=== PATIENT | male | born 1975 | race Caucasian/White ===

== ENCOUNTER 2017-04-24 11:54 | Emergency (ER) | payer MEDICARE, OTHER ==
[~2017-04-24] VITALS: Ht 167.6 cm; Wt 62.0 kg
[~2017-04-24 11:54] MED LIST: CENTTAB9 PO; CLEAPOW2 PO; DIAZ5 PO; DIVA500 PO; DIVA500T8 PO; FOLI1TAB PO; LAMO25 PO; LEVO75TA41 PO; PRIM250 PO; QUET100 PO; QUET300 PO; WAL-10TA2 PO
[2017-04-24 12:01] VITALS: BP 103/68; PULSE 96; RESP 16; TEMP 97.1; O2SAT 96
[2017-04-24] MEDS ORDERED: DIAZ5 PO (12:16)
[2017-04-24] MEDS ORDERED: DEPA500T PO ×2 (12:16)
[2017-04-24] MEDS ORDERED: PRIM250 PO (12:16)
[2017-04-24] MEDS ORDERED: LEVO100T5 PO (12:16)
[2017-04-24] MEDS ORDERED: SERO300T PO (12:16)
[2017-04-24] MEDS ORDERED: CLAR10CA3 PO (12:16)
[2017-04-24] MEDS ORDERED: [UNRECOGNIZED DRUG - CODE] TOPICAL (12:16)
[2017-04-24] MEDS ORDERED: CENTCHW4 CHEW (12:16)
[2017-04-24] MEDS ORDERED: SERO100T PO (12:16)
[2017-04-24] MEDS ORDERED: LAMO100 PO (12:16)
[2017-04-24] MEDS ORDERED: MIRA3350 PO (12:16)
[2017-04-24] MEDS ORDERED: FOLI-31 PO (12:16)
--- NOTE | 2017-04-24 12:34 | PD ---
HPI Chief Complaint: Fall Time Seen by Provider: 12:27 Travel History International Travel<30 days: No Contact w/Intl Traveler<30days: No Traveled to known affect area: No History of Present Illness HPI Pleasant young man with past medical history of ADD cerebral palsy seizure disorder mental retardation and mood control with aggressive behavior presents for evaluation of head trauma. Cert Pharmacy Tech reports seizure activity last night with trauma to the back of his head and an episode this morning. Last night's episode was observed and this morning's episode is questionable. Patient normally wears a helmet but it was not in place. Patient is uncommunicative which is his baseline. PFSH Past Medical History ADHD: Yes Cerebral Palsy: Yes Diabetes: No Diminished Hearing: No Gastrointestinal Disorders: Yes (CONSTIPATION) Neurologic: Yes (mental retardation) Psychiatric: Yes (MOOD CONTROL, AGRESSIVE BEHAVIOR) Immunizations Current: Yes (PER CAREGIVER) Seizures: Yes Tetanus Vaccination: < 5 Years Social History Alcohol Use: No Tobacco Use: No Substance Use: No Allergies-Medications (Allergen,Severity, Reaction): Coded Allergies: No Known Allergies (Verified , 04/24/17) Reported Meds & Prescriptions Reported Meds & Active Scripts Active Reported Seroquel (Quetiapine Fumarate) 300 Mg Tab 300 Mg PO HS Claritin (Loratadine) 10 Mg Cap 10 Mg PO DAILY Depakote DR (Divalproex Sodium) 500 Mg Tabdr 1,000 Mg PO HS Miralax Powder (Polyethylene Glycol 3350 Powder) 17 Gm Powd 17 Gm PO DAILY Mix and dissolve one measuring cap-ful (17 grams) in water or juice. Lamictal (Lamotrigine) 100 Mg Tab 100 Mg PO BID Mysoline (Primidone) 250 Mg Tab 250 Mg PO BID Depakote DR (Divalproex Sodium) 500 Mg Tabdr 500 Mg PO BID Valium (Diazepam) 5 Mg Tab 5 Mg PO Q6H PRN Foltabs (Folic Acid-B12-B6) 0.8-115-10 Mg Tab 1 Tab PO DAILY Cleocin-T Topical (Clindamycin Phosphate) 1% Lotn 1 Applic TOPICAL DAILY Levothyroxine (Levothyroxine Sodium) 100 Mcg Tab 100 Mcg PO DAILY Centrum (Multiple Vitamins W/ Minerals) 1 Chew 1 Tab CHEW DAILY Seroquel (Quetiapine Fumarate) 100 Mg Tab 100 Mg PO DAILY Review of Systems ROS Limitations: Poor Historian General / Constitutional: No: Fever Eyes: No: Visual changes HENT: No: Headaches Cardiovascular: No: Chest Pain or Discomfort Respiratory: No: Shortness of Breath Gastrointestinal: No: Abdominal Pain Genitourinary: No: Dysuria Musculoskeletal: No: Pain Skin: No Rash Neurologic: No: Weakness Psychiatric: No: Depression Endocrine: No: Polydipsia Hematologic/Lymphatic: No: Easy Bruising Physical Exam Narrative GENERAL: Well-nourished, well-developed patient. SKIN: Focused skin assessment warm/dry. HEAD: Normocephalic. Y-shaped laceration to the back of the head measuring approximately 2.5 cm in total diameter, well aligned with associated hematoma EYES: No scleral icterus. No injection or drainage. NECK: Supple, trachea midline. No JVD or lymphadenopathy. CARDIOVASCULAR: Regular rate and rhythm without murmurs, gallops, or rubs. RESPIRATORY: Breath sounds equal bilaterally. No accessory muscle use. GASTROINTESTINAL: Abdomen soft, non-tender, nondistended. MUSCULOSKELETAL: No cyanosis, or edema. BACK: Nontender without obvious deformity. No CVA tenderness. Data Data Last Documented VS Vital Signs Date Time Temp Pulse Resp B/P Pulse Ox O2 Delivery O2 Flow Rate FiO2 04/24/17 13:04 91 18 100/79 98 Room Air 04/24/17 12:[address] Brain W/O Iv Contrast(Rout) (04/24/17 ) Ct Cerv Spine W/O Contrast (04/24/17 ) Lorazepam Inj (Ativan Inj) (04/24/17 12:50) Lorazepam Inj (Ativan Inj) (04/24/17 13:00) MDM Medical Decision Making Medical Screen Exam Complete: Yes Emergency Medical Condition: Yes Differential Diagnosis Subdural hematoma, scalp laceration, concussion, scalp contusion Narrative Course Assessment and plan discussed with systems designer and patient at bedside. No closure of the scalp laceration since it is well aligned and has been greater than 12 hours. Last [address] 04/24/17 0000 Signed Impressions: Service Date/Time: Monday, April 24, 2017 12:35 - CONCLUSION: Unremarkable study except for slight scalp swelling. Aldo Sanchez MD Cervical Spine CT 04/24/17 0000 Signed Impressions: Service Date/Time: Monday, April 24, 2017 12:35 - CONCLUSION: Unremarkable study. Aldo Sanchez MD Diagnosis Primary Impression: Scalp contusion Additional Impression: Seizure-like activity Patient Instructions: General Instructions Additional Instructions: Encouraged to wear helmet more regularly. Encouraged to follow-up with neurology to discuss seizure medications. Return to the ER with any onset of new symptoms. Med/Other Pt SpecificInfo: No Meds Exist/No RX given Disposition: 01 DISCHARGE HOME Condition: Good Jose Mendez MD Apr 24, 2017 12:34
[2017-04-24] MEDS ORDERED: LORazepam 2 MG/ML VIAL ONE (12:50)
[2017-04-24] MEDS ORDERED: LORazepam 2 MG/ML VIAL IV ONE (13:00)
[2017-04-24 13:04] VITALS: BP 100/79; PULSE 91; RESP 18; O2SAT 98
--- NOTE | 2017-04-24 13:07 | RADRPT ---
EXAM DATE/TIME: 04/24/2017 12:35 [facility] COMPARISON: CT BRAIN W/O CONTRAST, April 25, 2016, 14:03. INDICATIONS : Seizure with fall, has prior laceration to top of head. RADIATION DOSE: 68.10 CTDIvol (mGy) MEDICAL HISTORY : Mental retardation. SURGICAL HISTORY : Non-responsive. ENCOUNTER: Initial ACUITY: 1 day PAIN SCALE: 0/10 LOCATION: cranial TECHNIQUE: Multiple contiguous axial images were obtained of the head. Using automated exposure control and adj ustment of the mA and/or kV according to patient size, radiation dose was kept as low as reasonably a chievable to obtain optimal diagnostic quality images. DICOM format image data is available electro nically for review and comparison. FINDINGS: There is no evidence for intracranial hemorrhage, mass effect, mass lesions, edema, or extra-axial fl uid collections. The visualized bony structures appear intact. The ventricles are normal size for t he patient's age. There are no signs of acute infarction for technique. Slight scalp swelling is see n on the left posteriorly. CONCLUSION: Unremarkable study except for slight scalp swelling. Aldo Sanchez MD on April 24, 2017 at 13:04 Board Certified Radiologist. This report was verified electronically.
--- NOTE | 2017-04-24 13:13 | RADRPT ---
EXAM DATE/TIME: 04/24/2017 12:35 [facility] COMPARISON: No previous studies available for comparison. INDICATIONS : Seizure with fall, prior laceration to top of head. RADIATION DOSE: 26.75 CTDIvol (mGy) MEDICAL HISTORY : Seizures. Mental retardation, Grand Mal seizures. SURGICAL HISTORY : Non-responsive. ENCOUNTER: Initial ACUITY: 1 day PAIN SCALE: Non-responsive LOCATION: neck TECHNIQUE: Volumetric scanning of the cervical spine was performed. Multiplanar reconstructions i n the sagittal, coronal and oblique axial planes were performed. Using automated exposure control a nd adjustment of the mA and/or kV according to patient size, radiation dose was kept as low as reason ably achievable to obtain optimal diagnostic quality images. DICOM format image data is available e lectronically for review and comparison. FINDINGS: No significant subluxation or soft tissue swelling is seen. No definite fracture is seen for techniqu e. C2-C3: No appreciable compromised to the thecal sac, exiting nerve roots are seen. The neural castro kiana are patent bilaterally. No appreciable thecal sac stenosis is seen. C3-C4: No appreciable compromised to the thecal sac, exiting nerve roots are seen. The neural castro kiana are patent bilaterally. No appreciable thecal sac stenosis is seen. C4-C5: No appreciable compromised to the thecal sac, exiting nerve roots are seen. The neural castro kiana are patent bilaterally. No appreciable thecal sac stenosis is seen. C5-C6: No appreciable compromised to the thecal sac, exiting nerve roots are seen. The neural castro kiana are patent bilaterally. No appreciable thecal sac stenosis is seen. C6-C7: No appreciable compromised to the thecal sac, exiting nerve roots are seen. The neural castro kiana are patent bilaterally. No appreciable thecal sac stenosis is seen. C7-T1: No appreciable compromised to the thecal sac, exiting nerve roots are seen. The neural castro kiana are patent bilaterally. No appreciable thecal sac stenosis is seen CONCLUSION: Unremarkable study. Aldo Sanchez MD on April 24, 2017 at 13:07 Board Certified Radiologist. This report was verified electronically.
[2017-04-24 13:57] VITALS: BP 119/89
== END 2017-04-24 14:06 | disposition home or self-care (01) ==
LOC: PHED 11:54
DX: S01.01XA Laceration without foreign body of scalp, initial encounter (principal); S00.03XA Contusion of scalp, initial encounter; G40.409 Other generalized epilepsy and epileptic syndromes, not intractable, without status epilepticus; G80.9 Cerebral palsy, unspecified; F90.9 Attention-deficit hyperactivity disorder, unspecified type; W18.30XA Fall on same level, unspecified, initial encounter; Y93.9 Activity, unspecified; Y92.009 Unspecified place in unspecified non-institutional (private) residence as the place of occurrence of the external cause
CPT/HCPCS: 70450; 72125; 96372; 99285; J2060

== ENCOUNTER 2017-12-17 20:07 | Emergency (ER) | payer MEDICARE, OTHER ==
[~2017-12-17] VITALS: Ht 167.6 cm; Wt 65.0 kg
[~2017-12-17 20:07] MED LIST changes: +CENTCHW4 CHEW; -CENTTAB9 PO; +CLAR10CA3 PO; -CLEAPOW2 PO; +DEPA500T PO; -DIVA500 PO; -DIVA500T8 PO; +FOLI-31 PO; -FOLI1TAB PO; +LAMO100 PO; -LAMO25 PO; +LEVO100T5 PO; -LEVO75TA41 PO; +MIRA3350 PO; -QUET100 PO; -QUET300 PO; +SERO100T PO; +SERO300T PO; -WAL-10TA2 PO; +[UNRECOGNIZED DRUG - CODE] TOPICAL
[2017-12-17 20:24] VITALS: BP 108/73; PULSE 87; RESP 20; TEMP 98.9; O2SAT 97
--- NOTE | 2017-12-17 21:08 | PD ---
HPI Chief Complaint: Seizure Time Seen by Provider: 20:21 Travel History International Travel<30 days: No Contact w/Intl Traveler<30days: No Traveled to known affect area: No History of Present Illness HPI pt is 42 yr old male with MR and seizure disorder , wears a crash jerel all the time, . today while walking in his kitchen and day care worker present he had a succession of seizure , they are brief and he rapid recovers and is over excited for few moments before he returns to baseline. His care worker reports that this is first time he had 6 seizures in a row and no change in his meds no skipping meds , pt has Dr Carlton neurologist. 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 PFSH Past Medical History ADHD: Yes Cerebral Palsy: Yes Diabetes: No Diminished Hearing: No Gastrointestinal Disorders: Yes (CONSTIPATION) Neurologic: Yes (mental retardation) Psychiatric: Yes (MOOD CONTROL, AGRESSIVE BEHAVIOR) Immunizations Current: Yes (PER CAREGIVER) Seizures: Yes Social History Alcohol Use: No Tobacco Use: No Substance Use: No Allergies-Medications (Allergen,Severity, Reaction): Coded Allergies: No Known Allergies (Verified Adverse Reaction, Unknown, 12/17/17) Reported Meds & Prescriptions Reported Meds & Active Scripts Active Reported Seroquel (Quetiapine Fumarate) 300 Mg Tab 300 Mg PO HS Claritin (Loratadine) 10 Mg Cap 10 Mg PO DAILY Depakote DR (Divalproex Sodium) 500 Mg Tabdr 1,000 Mg PO HS Miralax Powder (Polyethylene Glycol 3350 Powder) 17 Gm Powd 17 Gm PO DAILY Mix and dissolve one measuring cap-ful (17 grams) in water or juice. Lamictal (Lamotrigine) 100 Mg Tab 100 Mg PO BID Mysoline (Primidone) 250 Mg Tab 250 Mg PO BID Depakote DR (Divalproex Sodium) 500 Mg Tabdr 500 Mg PO BID Valium (Diazepam) 5 Mg Tab 5 Mg PO Q6H PRN Foltabs (Folic Acid-B12-B6) 0.8-115-10 Mg Tab 1 Tab PO DAILY Cleocin-T Topical (Clindamycin Phosphate) 1% Lotn 1 Applic TOPICAL DAILY Levothyroxine (Levothyroxine Sodium) 100 Mcg Tab 100 Mcg PO DAILY Centrum (Multiple Vitamins W/ Minerals) 1 Chew 1 Tab CHEW DAILY Seroquel (Quetiapine Fumarate) 100 Mg Tab 100 Mg PO DAILY Review of Systems ROS Limitations: Language Barrier, Speech Impaired (minimally verbal MR pt ) Physical Exam Narrative GENERAL: Patient is awake alert nonverbal wearing a crash helmet for seizure prophylaxis SKIN: Warm and dry. HEAD: Positive traumatic small abrasion occipital area superficial to minimal laceration. Wearing a soft helmet for drop attacks EYES: Pupils equal and round. No scleral icterus. No injection or drainage. ENT: No nasal bleeding or discharge. Mucous membranes pink and moist. NECK: Trachea midline. No JVD. CARDIOVASCULAR: Regular rate and rhythm. RESPIRATORY: No accessory muscle use. Clear to auscultation. Breath sounds equal bilaterally. GASTROINTESTINAL: Abdomen soft, non-tender, nondistended. Hepatic and splenic margins not palpable. MUSCULOSKELETAL: Extremities without clubbing, cyanosis, or edema. No obvious deformities. NEUROLOGICAL: Awake and alert. No obvious neurological focal deficits minimally verbal Psych : his MR minimally verbal Data Data Last Documented VS Vital Signs Date Time Temp Pulse Resp B/P (MAP) Pulse Ox O2 Delivery O2 Flow Rate FiO2 12/17/17 23:54 79 20 112/74 (87) 97 12/17/17 20:24 98.9 Orders Orders Complete Blood Count With Diff (12/17/17 20:33) Comprehensive Metabolic Panel (12/17/17 20:33) Magnesium (Mg) (12/17/17 20:33) Phosphorus (Po4) (12/17/17 20:33) Diazepam (Valium) (12/17/17 21:15) Orthostatic Vital Signs (12/17/17 22:42) Ed Discharge Order (12/17/17 23:04) Labs Laboratory Tests Test 12/17/17 21:10 White Blood Count 5.7 TH/MM3 Red Blood Count 3.88 MIL/MM3 Hemoglobin 13.2 GM/DL Hematocrit 39.0 % Mean Corpuscular Volume 100.4 FL Mean Corpuscular Hemoglobin 34.0 PG Mean Corpuscular Hemoglobin Concent 33.9 % Red Cell Distribution Width 12.7 % Platelet Count 199 TH/MM3 Mean Platelet Volume 8.0 FL Neutrophils (%) (Auto) 54.0 % Lymphocytes (%) (Auto) 35.8 % Monocytes (%) (Auto) 8.1 % Eosinophils (%) (Auto) 1.1 % Basophils (%) (Auto) 1.0 % Neutrophils # (Auto) 3.0 TH/MM3 Lymphocytes # (Auto) 2.0 TH/MM3 Monocytes # (Auto) 0.5 TH/MM3 Eosinophils # (Auto) 0.1 TH/MM3 Basophils # (Auto) 0.1 TH/MM3 CBC Comment DIFF FINAL Differential Comment Blood Urea Nitrogen 24 MG/DL Creatinine 0.88 MG/DL Random Glucose 83 MG/DL Total Protein 7.7 GM/DL Albumin 3.3 GM/DL Calcium Level 8.3 MG/DL Phosphorus Level 3.1 MG/DL Magnesium Level 2.1 MG/DL Alkaline Phosphatase 45 U/L Aspartate Amino Transf (AST/SGOT) 10 U/L Alanine Aminotransferase (ALT/SGPT) 15 U/L Total Bilirubin LESS THAN 0.1 MG/DL Sodium Level 140 MEQ/L Potassium Level 4.2 MEQ/L Chloride Level 108 MEQ/L Carbon Dioxide Level 29.1 MEQ/L Anion Gap 3 MEQ/L Estimat Glomerular Filtration Rate 95 ML/MIN [facility] Medical Decision Making Medical Screen Exam Complete: Yes Emergency Medical Condition: Yes Differential Diagnosis Seizure recurrent due to infection versus normal seizure course. Narrative Course Sources of infection are not found his white count is only serum WBC= 5 there is no neutrophilic shift, there is no sign of infection,, he is afebrile... he is back to his baseline according to his caregiver who is bedside. 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 Pt given Valium 5 mg PO in ER which is on his med list Q8 hrs PRN agitation anxiety. Pt safe for close neurology follow up Diagnosis Primary Impression: Seizure-like activity Additional Impression: Head contusion Qualified Codes: S00.93XA - Contusion of unspecified part of head, initial encounter Patient Instructions: General Instructions, Generalized Tonic Clonic Seizures ( ED) Disposition: 01 DISCHARGE HOME Condition: Good Jay Issa MD Dec 17, 2017 21:08
[2017-12-17] MEDS ORDERED: DIAZEPAM 5 MG TAB PO ONE (21:15)
[2017-12-17 21:19] LABS: BASOPHIL # 0.1 TH/MM3 (0-0.2); EOSINOPHIL # 0.1 TH/MM3 (0-0.4); EOSINOPHIL % 1.1 % (0.0-4.0); HEMOGLOBIN 13.2 GM/DL (13.0-17.0); LYMPH % 35.8 % (9.0-44.0); MEAN CELL VOLUME 100.4 FL (80.0-100.0); MEAN CORPUSCULAR HGB CONC 33.9 % (32.0-36.0); MONO % 8.1 % (0.0-8.0); MONOCYTE # 0.5 TH/MM3 (0-0.9); PLATELET COUNT 199 TH/MM3 (150-450); RED BLOOD COUNT 3.88 MIL/MM3 (4.50-5.90); RED CELL DISTRIBUTION WIDTH 12.7 % (11.6-17.2); WHITE BLOOD COUNT 5.7 TH/MM3 (4.0-11.0)
[2017-12-17 21:25] LABS: CHLORIDE 108 MEQ/L (98-107); SODIUM (NA) 140 MEQ/L (136-145)
[2017-12-17 21:29] LABS: ALBUMIN 3.3 GM/DL (3.4-5.0); BICARBONATE 29.1 MEQ/L (21.0-32.0); BLOOD UREA NITROGEN 24 MG/DL (7-18); CALCIUM 8.3 MG/DL (8.5-10.1); GLUCOSE,RANDOM 83 MG/DL (74-106); MAGNESIUM 2.1 MG/DL (1.5-2.5)
[2017-12-17 21:32] LABS: ALT (GPT) 15 U/L (12-78); AST (GOT) 10 U/L (15-37); CREATININE 0.88 MG/DL (0.60-1.30); GLOMERULAR FILTRATION RATE 95 ML/MIN (>89); PHOSPHORUS 3.1 MG/DL (2.5-4.9)
[2017-12-17 21:34] LABS: TOTAL BILIRUBIN ADULT LESS THAN 0.1 MG/DL (0.2-1.0); TOTAL PROTEIN 7.7 GM/DL (6.4-8.2)
[2017-12-17 21:35] LABS: ALKALINE PHOSPHATASE 45 U/L (45-117)
[2017-12-17 21:37] VITALS: BP 111/62; PULSE 84; RESP 20; O2SAT 97
[2017-12-17 22:57] VITALS: BP_SYST 108; BP_SYST 110; BP_SYST 112; BP_DIAS 68; BP_DIAS 79; BP_DIAS 83; RESP 18; RESP 20
[2017-12-17 23:54] VITALS: BP 112/74
== END 2017-12-17 23:56 | disposition home or self-care (01) ==
LOC: PHED 20:07
DX: S00.93XA Contusion of unspecified part of head, initial encounter (principal); R46.89 Other symptoms and signs involving appearance and behavior; G80.9 Cerebral palsy, unspecified; F90.9 Attention-deficit hyperactivity disorder, unspecified type; K59.00 Constipation, unspecified; F79 Unspecified intellectual disabilities; Z86.69 Personal history of other diseases of the nervous system and sense organs; X58.XXXA Exposure to other specified factors, initial encounter; Y92.000 Kitchen of unspecified non-institutional (private) residence as the place of occurrence of the external cause
CPT/HCPCS: 80053; 83735; 84100; 85025; 99283